=== PATIENT | male | born 1935 | race Caucasian/White ===

== ENCOUNTER 2017-09-24 00:11 | Inpatient (IN) | payer MEDICARE, OTHER ==
[~2017-09-24] VITALS: Ht 170.2 cm; Wt 85.5 kg
[~2017-09-24 00:11] MED LIST: ASPI300S4 PO; DOXA4TAB40 PO; DOXY100C46 PO; DRON400T PO; ESOM40CA39 PO; FIBETAB OR; FINA5TAB4 PO; METO25TA5 PO; MULTCAP PO; NIAC400C2 PO; SIMV-8 PO
[2017-09-24 00:57] LABS: Basophils # (auto) 0.1 uL; Basophils % (auto) 0.8 % (0.0-2.0); Eosinophils # (auto) 0.2 uL; Eosinophils % (auto) 2.6 % (0.0-7.0); Hematocrit 36.9 % (41.0-53.0); Hemoglobin 12.9 g/dL (13.5-17.5); Lymphocytes # (auto) 1.5 uL; Lymphocytes % (auto) 17.4 % (10.0-50.0); Mean Corpuscular Hemoglobin 31.1 pg (28.0-32.0); Mean Corpuscular Hgb Conc. 35.1 g/dL (32.0-36.0); Mean Corpuscular Volume 88.7 fL (80.0-100.0); Monocytes # (auto) 0.8 uL; Neutrophils % (auto) 70.2 % (37.0-80.0); Nucleated Red Blood Cells % 0.1 %; Platelet Count (auto) 211 10^3/uL (140-450); Red Blood Cells 4.16 10^6/uL (4.5-5.90); Red Cell Distribution Width 13.4 % (11.8-14.3); White Blood Cell 8.5 10^3/uL (4.4-10.8)
[2017-09-24 01:08] LABS: Alanine Aminotransferase 20 U/L (16-61); Anion Gap 11 (5-15); BUN/Creatinine Ratio 20.1; Blood Urea Nitrogen 33 mg/dL (7-18); Calcium 7.7 mg/dL (8.5-10.1); Carbon Dioxide 20 mmol/L (21-32); Chloride 111 mmol/L (98-107); GFR African American 52 mL/min; GFR Non-African American 43 mL/min; Glucose 110 mg/dL (74-106); Magnesium 2.1 mg/dL (1.6-2.6); Potassium 4.5 mmol/L (3.5-5.1); Sodium 142 mmol/L (136-145)
[2017-09-24 01:09] LABS: Partial Thromboplastin Time 33.1 sec (23.78-33.04); Prothrombin Time 10.7 sec (9.27-12.13)
[2017-09-24 01:21] LABS: Alkaline Phosphatase 65 U/L (45-117); Aspartate Aminotransferase 20 U/L (15-37); Bilirubin, Total 0.3 mg/dL (0.2-1.0); Total Protein 6.8 g/dL (6.4-8.2)
[2017-09-24] MEDS ORDERED: FINA5TAB4 PO (01:26)
[2017-09-24] MEDS ORDERED: DILT-14 PO (01:26)
[2017-09-24] MEDS ORDERED: PANT40TA2 PO (01:26)
[2017-09-24] MEDS ORDERED: CLOP75TA41 PO (01:26)
[2017-09-24] MEDS ORDERED: ALPR0.254 PO (01:26)
[2017-09-24] MEDS ORDERED: MAGN400T5 PO (01:26)
[2017-09-24] MEDS ORDERED: CHOL20007 PO (01:26)
[2017-09-24] MEDS ORDERED: SOTA80TA PO (01:26)
[2017-09-24 02:14] LABS: Urine Bacteria NONE SEEN /hpf (None Seen); Urine Blood Negative /uL (Negative); Urine WBC <1 /hpf (0 - 3)
[2017-09-24] MEDS ORDERED: ONDANSETRON HCL 4 MG/2 ML VIAL IV PRN (03:45)
[2017-09-24] MEDS ORDERED: MORPHINE SULF INJ 2 MG/ML SYRINGE 1ML IV PRN (03:45)
[2017-09-24] MEDS ORDERED: HYDROcodone-ACET 5/325MG TAB PO PRN (03:45)
[2017-09-24] MEDS ORDERED: ACETAMINOPHEN 325 MG TAB PO PRN (03:45)
[2017-09-24] MEDS ORDERED: NITROGLYCERIN 0.4 MG SL TAB SL PRN (03:45)
[2017-09-24] MEDS: PANTOPRAZOLE 40 MG TAB PO SCH (08:08)
[2017-09-24] MEDS: ASPirin 81 mg TAB PO SCH (10:58)
[2017-09-24] MEDS: CLOPIDOGREL BISULFATE 75 MG TAB PO SCH (10:58)
[2017-09-24] MEDS: ENOXAPARIN SOD 40 MG/0.4 ML SYRINGE SC SCH (10:59)
[2017-09-24] MEDS: DILTIAZEM HCL 120MG ER CAP PO SCH (11:04)
[2017-09-24] MEDS: SOTALOL HCL 80 MG TAB PO SCH (11:05)
[2017-09-24 22:00] VITALS: BP 149/95
[2017-09-24] MEDS ORDERED: ATORVASTATIN 20 MG TAB PO SCH (22:00)
[2017-09-24] MEDS ORDERED: PATIENTS OWN MEDICATION (simvastatin 40 MG) PO SCH (22:00)
[2017-09-24] MEDS: METOPROLOL SUCCINATE XL 50 MG TAB PO SCH (22:47)
[2017-09-25 05:00] VITALS: BP 116/87
[2017-09-25 06:05] LABS: Albumin 3.3 g/dL (3.4-5.0); BUN/Creatinine Ratio 20.6; Bilirubin, Total 0.5 mg/dL (0.2-1.0); Calcium 8.6 mg/dL (8.5-10.1); Potassium 4.3 mmol/L (3.5-5.1); Total Protein 7.1 g/dL (6.4-8.2)
[2017-09-25 06:09] LABS: Basophils # (auto) 0 uL; Basophils % (auto) 0.6 % (0.0-2.0); Eosinophils # (auto) 0.2 uL; Eosinophils % (auto) 3.2 % (0.0-7.0); Hematocrit 38.8 % (41.0-53.0); Hemoglobin 13.4 g/dL (13.5-17.5); Lymphocytes # (auto) 1.3 uL; Lymphocytes % (auto) 18.3 % (10.0-50.0); Mean Corpuscular Hemoglobin 30.4 pg (28.0-32.0); Mean Corpuscular Hgb Conc. 34.5 g/dL (32.0-36.0); Mean Corpuscular Volume 88.2 fL (80.0-100.0); Monocytes # (auto) 0.6 uL; Monocytes % (auto) 8.1 % (0.0-12.0); Neutrophils # (auto) 4.9 uL; Neutrophils % (auto) 69.8 % (37.0-80.0); Platelet Count (auto) 214 10^3/uL (140-450); Red Cell Distribution Width 13.4 % (11.8-14.3)
[2017-09-25 08:00] VITALS: BP 126/88
[2017-09-25] MEDS: ASPirin 81 mg TAB PO SCH (10:33)
[2017-09-25] MEDS: PANTOPRAZOLE 40 MG TAB PO SCH (10:33)
[2017-09-25] MEDS: SOTALOL HCL 80 MG TAB PO SCH (10:33)
[2017-09-25] MEDS: ENOXAPARIN SOD 40 MG/0.4 ML SYRINGE SC SCH (10:34)
[2017-09-25] MEDS: DILTIAZEM HCL 120MG ER CAP PO SCH (10:34)
[2017-09-25] MEDS: CLOPIDOGREL BISULFATE 75 MG TAB PO SCH (10:34)
[2017-09-25] MEDS: METOPROLOL SUCCINATE XL 50 MG TAB PO SCH (10:35)
[2017-10-05] MEDS ORDERED: NIAC500T71 PO (01:47)
== END 2017-09-25 13:00 | disposition home or self-care (01) | DRG 309 ==
LOC: EDBD 00:11 → ER 00:13 → TELE 00:14 → TELE-WESTW 20:08
PROVIDERS: ADMIT Nurse Practitioner; ATTEND Family Medicine
DX: I47.1 Supraventricular tachycardia (principal); J98.11 Atelectasis; E78.00 Pure hypercholesterolemia, unspecified; G35 Multiple sclerosis; I48.0 Paroxysmal atrial fibrillation; I70.0 Atherosclerosis of aorta; K21.9 Gastro-esophageal reflux disease without esophagitis; K22.0 Achalasia of cardia; N18.3 Chronic kidney disease, stage 3 (moderate); I13.10 Hypertensive heart and chronic kidney disease without heart failure, with stage 1 through stage 4 chronic kidney disease, or unspecified chronic kidney disease; Z95.0 Presence of cardiac pacemaker; Z79.82 Long term (current) use of aspirin; Z79.899 Other long term (current) drug therapy; Z82.3 Family history of stroke
CPT/HCPCS: 36415; 71045; 80053; 81001; 83735; 83880; 84443; 84484; 85025; 85610; 85730; 93005; 93306; 94761

== ENCOUNTER 2018-12-08 19:29 | Emergency (ER) | payer MEDICARE, OTHER ==
[~2018-12-08] VITALS: Ht 177.8 cm; Wt 81.6 kg
[~2018-12-08 19:29] MED LIST changes: +ALPR0.254 PO; -ASPI300S4 PO; +CHOL20007 PO; +CLOP75TA41 PO; -DOXA4TAB40 PO; -DOXY100C46 PO; -DRON400T PO; -ESOM40CA39 PO; +MAGN400T5 PO; -METO25TA5 PO; +MULT-830 PO; -MULTCAP PO; -NIAC400C2 PO; +NIAC500T71 PO; +PANT40TA2 PO
[2018-12-08 19:55] LABS: Basophils # (auto) 0.1 uL; Basophils % (auto) 0.6 % (0.0-2.0); Eosinophils # (auto) 0 uL; Eosinophils % (auto) 0.1 % (0.0-7.0); Hematocrit 35.9 % (41.0-53.0); Hemoglobin 12.5 g/dL (13.5-17.5); Lymphocytes # (auto) 1.3 uL; Lymphocytes % (auto) 9.5 % (10.0-50.0); Mean Corpuscular Hemoglobin 30.6 pg (28.0-32.0); Mean Corpuscular Hgb Conc. 34.8 g/dL (32.0-36.0); Mean Corpuscular Volume 87.9 fL (80.0-100.0); Monocytes # (auto) 1.5 uL; Monocytes % (auto) 11.5 % (0.0-12.0); Neutrophils # (auto) 10.4 uL; Neutrophils % (auto) 78.3 % (37.0-80.0); Platelet Count (auto) 222 10^3/uL (140-450); Red Blood Cells 4.09 10^6/uL (4.5-5.90); Red Cell Distribution Width 13.2 % (11.8-14.3); White Blood Cell 13.3 10^3/uL (4.4-10.8)
[2018-12-08 20:15] LABS: Alanine Aminotransferase 17 U/L (16-61); Albumin 3.4 g/dL (3.4-5.0); Anion Gap 9 (5-15); Blood Urea Nitrogen 31 mg/dL (7-18); Calcium 8.4 mg/dL (8.5-10.1); Carbon Dioxide 22 mmol/L (21-32); Chloride 102 mmol/L (98-107); Glucose 106 mg/dL (74-106); Potassium 4.4 mmol/L (3.5-5.1); Sodium 133 mmol/L (136-145)
[2018-12-08 20:16] LABS: INR 1.07 (0.9-1.15); Partial Thromboplastin Time 36.7 sec (23.64-32.05)
[2018-12-08 20:19] LABS: Alkaline Phosphatase 58 U/L (45-117); Aspartate Aminotransferase 10 U/L (15-37); BUN/Creatinine Ratio 15.9; Bilirubin, Total 0.7 mg/dL (0.2-1.0); GFR African American 43 mL/min; GFR Non-African American 35 mL/min; Total Protein 7.4 g/dL (6.4-8.2)
[2018-12-08] MEDS ORDERED: ONDANSETRON HCL 4 MG/2 ML VIAL IV ONE (20:30)
[2018-12-08 22:40] VITALS: BP 117/81
[2018-12-08] MEDS ORDERED: ACETAMINOPHEN 325 MG TAB PO ONE (22:45)
== END 2018-12-08 23:22 | disposition short-term general hospital (02) ==
LOC: ER 19:29
DX: I62.01 Nontraumatic acute subdural hemorrhage (principal); R47.81 Slurred speech; G35 Multiple sclerosis; K21.9 Gastro-esophageal reflux disease without esophagitis; E78.5 Hyperlipidemia, unspecified; I10 Essential (primary) hypertension; R41.3 Other amnesia; Z79.899 Other long term (current) drug therapy
CPT/HCPCS: 36415; 70450; 71045; 80053; 80162; 82962; 83880; 84443; 84484; 85025; 85610; 85730; 93005; 94761; 96374; 99285; J2405

== ENCOUNTER 2019-02-10 01:58 | Emergency (ER) | payer MEDICARE, OTHER ==
[~2019-02-10] VITALS: Ht 177.8 cm; Wt 77.1 kg
[~2019-02-10 01:58] MED LIST changes: +MAGN400T40 PO; -MAGN400T5 PO
[2019-02-10 02:29] LABS: Basophils # (auto) 0.1 uL; Basophils % (auto) 0.6 % (0.0-2.0); Eosinophils # (auto) 0.1 uL; Eosinophils % (auto) 1.2 % (0.0-7.0); Hematocrit 40.5 % (41.0-53.0); Hemoglobin 13.5 g/dL (13.5-17.5); Lymphocytes # (auto) 1.4 uL; Lymphocytes % (auto) 11.8 % (10.0-50.0); Mean Corpuscular Hgb Conc. 33.2 g/dL (32.0-36.0); Mean Corpuscular Volume 90.3 fL (80.0-100.0); Monocytes # (auto) 1.2 uL; Monocytes % (auto) 10.4 % (0.0-12.0); Neutrophils # (auto) 8.9 uL; Platelet Count (auto) 277 10^3/uL (140-450); Red Blood Cells 4.49 10^6/uL (4.5-5.90); Red Cell Distribution Width 14.5 % (11.8-14.3); White Blood Cell 11.7 10^3/uL (4.4-10.8)
[2019-02-10 02:46] LABS: Albumin 3.5 g/dL (3.4-5.0); BUN/Creatinine Ratio 17.1; Calcium 8.9 mg/dL (8.5-10.1); Magnesium 2.1 mg/dL (1.6-2.6); Potassium 4.8 mmol/L (3.5-5.1)
[2019-02-10 02:49] LABS: Bilirubin, Total 0.3 mg/dL (0.2-1.0)
[2019-02-10 10:50] LABS: INR 1.12 (0.9-1.15)
[2019-02-10 13:56] VITALS: BP 127/85
== END 2019-02-10 14:16 | disposition short-term general hospital (02) ==
LOC: ER 02:01
DX: G93.41 Metabolic encephalopathy (principal); G35 Multiple sclerosis; I10 Essential (primary) hypertension; K21.9 Gastro-esophageal reflux disease without esophagitis; E78.00 Pure hypercholesterolemia, unspecified; Z79.899 Other long term (current) drug therapy
CPT/HCPCS: 36415; 70450; 71045; 80053; 83735; 85025; 85610; 93005

== ENCOUNTER 2020-07-10 06:39 | Inpatient (IN) | payer MEDICARE, OTHER ==
[~2020-07-10] VITALS: Ht 177.8 cm; Wt 65.5 kg
[~2020-07-10 06:39] MED LIST changes: -ALPR0.254 PO; +AMIO200T33 PO; -CHOL20007 PO; -CLOP75TA41 PO; +CLOP75TA70 PO; +DIGO0.12 PO; +DILT120C44 PO; +DONE1TAB88 PO; -FIBETAB OR; -MAGN400T40 PO; +METO-289 PO; -MULT-830 PO; -NIAC500T71 PO; +PHE100C PO; +PRAV20TA3 PO; -SIMV-8 PO
[2020-07-10] MEDS ORDERED: IODIXANOL 320MG/ML 100ML BTL IV ONE (07:30)
[2020-07-10] MEDS ORDERED: LIDOCAINE 2%HCL (LOCAL ANESTH.) INJ 20ML MDV ONE (07:30)
[2020-07-10] MEDS ORDERED: fentaNYL CITRATE 100 MCG/2 ML VL ONE (08:09)
[2020-07-10] MEDS ORDERED: MIDAZOLAM HCL 2MG/2ML 2ml VIAL (1mg/ml) ONE (08:10)
[2020-07-10] MEDS ORDERED: ceFAZolin 1GM/50ML 50 ML IV ONE (08:32)
[2020-07-10] MEDS ORDERED: NITROGLYCERIN 0.4 MG SL TAB SL PRN ×2 (10:30→13:00)
[2020-07-10] MEDS ORDERED: MORPHINE SULFATE INJECTION 2 MG/ML SYRG IV PRN ×2 (10:30→13:00)
[2020-07-10] MEDS ORDERED: MULT-1018 PO (11:27)
[2020-07-10] MEDS ORDERED: CHOL10009 PO (11:27)
[2020-07-10] MEDS ORDERED: METO25TA93 PO (11:27)
[2020-07-10] MEDS ORDERED: PHEN100C PO (11:27)
[2020-07-10] MEDS: SODIUM CHLOR 0.9% PF (SALINE LOCK) 10ML VIAL/SYR IV SCH ×2 (14:06→21:48)
[2020-07-10 15:41] VITALS: BP 113/69
[2020-07-10 16:37] VITALS: BP 129/74
[2020-07-10 22:00] VITALS: BP 110/69
[2020-07-10] MEDS ORDERED: DONEPEZIL HYDROCHLORIDE 5 MG TAB PO SCH (22:00)
[2020-07-10] MEDS ORDERED: PRAVASTATIN SODIUM 20 MG TAB PO SCH (22:00)
[2020-07-10] MEDS ORDERED: PHENYTOIN SODIUM 100 MG CAP PO SCH (22:00)
[2020-07-11 05:00] VITALS: BP 122/74
[2020-07-11 05:30] LABS: Basophils # (auto) 0 10 ^3/uL (0-0.2); Basophils % (auto) 0.5 % (0.0-2.0); Eosinophils # (auto) 0.2 10 ^3/uL (0-0.8); Eosinophils % (auto) 2.1 % (0.0-7.0); Hematocrit 30.9 % (41.0-53.0); Hemoglobin 11.1 g/dL (13.5-17.5); Lymphocytes # (auto) 0.8 10 ^3/uL (0.4-5.4); Lymphocytes % (auto) 8.6 % (10.0-50.0); Mean Corpuscular Hemoglobin 33.3 pg (28.0-32.0); Mean Corpuscular Hgb Conc. 35.8 g/dL (32.0-36.0); Mean Corpuscular Volume 93.1 fL (80.0-100.0); Monocytes # (auto) 0.8 10 ^3/uL (0-1.3); Monocytes % (auto) 8.8 % (0.0-12.0); Neutrophils # (auto) 7.2 10 ^3/uL (1.6-8.6); Red Blood Cells 3.32 10^6/uL (4.5-5.90); Red Cell Distribution Width 14.3 % (11.8-14.3)
[2020-07-11 05:57] LABS: Potassium 4.7 mmol/L (3.5-5.1)
[2020-07-11 05:58] LABS: Digoxin (Lanoxin) 0.7 ng/mL (0.8-2)
[2020-07-11] MEDS: SODIUM CHLOR 0.9% PF (SALINE LOCK) 10ML VIAL/SYR IV SCH (06:00)
[2020-07-11 06:03] LABS: BUN/Creatinine Ratio 12.9; Calcium 8.5 mg/dL (8.5-10.1)
[2020-07-11 06:27] LABS: Phenytoin (Dilantin) 24.5 ug/mL (10-20)
[2020-07-11] MEDS ORDERED: PHENYTOIN SODIUM 100 MG CAP PO SCH (07:00)
[2020-07-11 09:00] VITALS: BP 124/63
[2020-07-11] MEDS ORDERED: AMIODARONE HCL 200 MG TAB PO SCH (10:00)
[2020-07-11] MEDS ORDERED: CLOPIDOGREL BISULFATE 75 MG TAB PO SCH (10:00)
[2020-07-11] MEDS ORDERED: METOPROLOL SUCCINATE XL 50 MG TAB PO SCH (10:00)
[2020-07-11] MEDS ORDERED: PANTOPRAZOLE 40 MG TAB PO SCH (10:00)
[2020-07-11 12:22] VITALS: BP 127/75
[2020-07-11 13:00] VITALS: BP 127/75
[2020-07-12] MEDS ORDERED: DIGOXIN 0.125 MG TAB PO SCH (10:00)
== END 2020-07-11 14:35 | disposition home or self-care (01) | DRG 274 ==
LOC: CATH 06:39 → TELE 10:30 → TELE-WESTW 13:57
PROVIDERS: ADMIT Internal Medicine; ATTEND Internal Medicine
PROC: 02K83ZZ Map Conduction Mechanism, Percutaneous Approach (ICD-10-PCS; principal; 2020-07-10)
PROC: 02583ZZ Destruction of Conduction Mechanism, Percutaneous Approach (ICD-10-PCS; 2020-07-10)
PROC: 4A0234Z Measurement of Cardiac Electrical Activity, Percutaneous Approach (ICD-10-PCS; 2020-07-10)
DX: I47.1 Supraventricular tachycardia (principal); G40.909 Epilepsy, unspecified, not intractable, without status epilepticus; I48.91 Unspecified atrial fibrillation; Z95.0 Presence of cardiac pacemaker; G35 Multiple sclerosis; E78.5 Hyperlipidemia, unspecified; N18.31 Chronic kidney disease, stage 3a; N40.0 Benign prostatic hyperplasia without lower urinary tract symptoms; T42.0X5A Adverse effect of hydantoin derivatives, initial encounter; Y92.89 Other specified places as the place of occurrence of the external cause
CPT/HCPCS: 36415; 80048; 80162; 80185; 85025; 93613; 93653; 99152; G0378; J0690; J2250; Q9967